=== PATIENT | male | born 1960 | race Caucasian/White ===

== ENCOUNTER 2017-04-10 08:02 | Inpatient (IN) | payer OTHER ==
[~2017-04-10] VITALS: Ht 185.4 cm; Wt 89.4 kg
[~2017-04-10 08:02] MED LIST: TEMA15CA PO
[2017-04-10] MEDS ORDERED: CELECOXIB 100 MG CAPSULE ONE (10:29)
[2017-04-10] MEDS ORDERED: ACETAMINOPHEN 325 MG TABLET ONE (10:29)
[2017-04-10] MEDS ORDERED: oxyCODONE HCL SR 10MG TAB.SR.12H PO ONE (10:29)
[2017-04-10] MEDS ORDERED: MIDAZOLAM HCL 2 MG/2ML VIAL ONE (12:12)
[2017-04-10] MEDS ORDERED: HYDROMORPHONE INJ 2 MG/ML DISP.SYRIN ONE (12:12)
[2017-04-10] MEDS ORDERED: TRANEXAMIC ACID 3,000 MG in SODIUM CHLORIDE IRRIG SOLUTION 70 ML IR ONE (12:30)
[2017-04-10] MEDS ORDERED: BACITRACIN 50000 UNITS/VIAL ONE (12:37)
[2017-04-10] MEDS ORDERED: BUPIVACAINE 0.5 % PF 150 MG/30 ML VIAL ONE (12:37)
[2017-04-10] MEDS ORDERED: KETOROLAC TROMETHAMINE INJ 30 MG/ML VIAL ONE (12:37)
--- NOTE | 2017-04-10 13:30 | NUR ---
RN OPENING NOTES PATIENT RETURNED TO UNIT IN STABLE CONDITION. VS WNL. AOX4. COMPLAINING OF SEVERE PAIN IN THE LEFT KNEE S/P LEFT TKA. DENIES CP OR SOB. RESPIRATIONS EVEN AND UNLABORED. NO ACUTE DISTRESS. IV ACCESS ON THE LEFT AC 18G PATENT AND INTACT. WILLL CARRY OUT ORDERS GIVEN FOR POST OP PER DR. TORRES. WILL CONTINUE TO MONITOR, ASSESS AND EDUCATE PATIENT THROUGHOUT SHIFT.
[2017-04-10 14:30] VITALS: BP 130/82
[2017-04-10] MEDS ORDERED: TYLENOL 650 MG TABLET PO PRN (15:00)
[2017-04-10] MEDS ORDERED: IV LR 1000 ML 1,000 ML IV PRN (15:00)
[2017-04-10] MEDS ORDERED: DULCOLAX 10 MG/SUPP.RECT RC PRN (15:00)
[2017-04-10] MEDS ORDERED: COLACE 250 MG CAPSULE PO PRN (15:00)
[2017-04-10] MEDS ORDERED: AMBIEN 5 MG TABLET PO PRN (15:00)
[2017-04-10] MEDS ORDERED: HYDROCODONE/APAP 5/325MG 1 EACH TABLET PO PRN (15:00)
[2017-04-10] MEDS ORDERED: SENOKOT 8.6 MG TABLET PO PRN (15:00)
[2017-04-10] MEDS: FENTANYL PF 100MCG/2ML AMPUL IV PRN ×3 (15:43→21:20)
[2017-04-10 16:00] VITALS: BP 130/82
--- NOTE | 2017-04-10 18:00 | NUR ---
RN NOTES PATIENT SEEN BY PT FOR EVAL. PATIENT ON CPM MACHINE TOLERATING AT 50 DEGREES. WILL CONTINUE TO MONITOR.
--- NOTE | 2017-04-10 19:00 | NUR ---
RN NOTES PATIENT CARE CONTINUED INTO NEXT SHIFT.
[2017-04-10 20:00] VITALS: BP 127/73
[2017-04-10] MEDS: ANCEF 1 GM/50 ML D5W IV SCH ×2 (21:18)
[2017-04-10] MEDS ORDERED: NICOTINE PATCH (21MG) 21 MG PATCH.TD24 TD ONE (22:48)
[2017-04-10] MEDS ORDERED: DRONABINOL (2.5 MG) 2.5 MG CAPSULE PO ONE (22:48)
--- NOTE | 2017-04-10 22:56 | NUR ---
RN NOTES PATIENT XANAX PLACED IN PHARMACY BIN. QUANTITY 20 AND VERIFIED WITH PATIENT.
[2017-04-10] MEDS ORDERED: PANTOPRAZOLE 40 MG TABLET.DR PO SCH (23:00)
[2017-04-10] MEDS ORDERED: ONDANSETRON HCL/PF 4 MG/2 ML VIAL IV PRN (23:00)
[2017-04-10] MEDS: DRONABINOL (2.5 MG) 2.5 MG CAPSULE PO SCH (23:00)
[2017-04-10] MEDS ORDERED: MAGNESIUM HYDROXIDE 30 ML UDC PO PRN (23:00)
[2017-04-10] MEDS: NICOTINE PATCH (21MG) 21 MG PATCH.TD24 TD SCH (23:00)
[2017-04-10] MEDS ORDERED: CLONIDINE HCL 0.1 MG TABLET PO PRN (23:00)
[2017-04-10] MEDS ORDERED: MAG HYDROX/AL HYDROX/SIMETH 30 ML UDC PO PRN (23:00)
[2017-04-10] MEDS ORDERED: diphenhydrAMINE HCL 25 MG CAPSULE PO PRN (23:00)
[2017-04-10] MEDS ORDERED: PROMETHAZINE HCL 50 MG/ML AMPUL IM PRN (23:00)
[2017-04-11] MEDS ORDERED: DRONABINOL (2.5 MG) 2.5 MG CAPSULE PO ONE (00:09)
[2017-04-11] MEDS: FENTANYL PF 100MCG/2ML AMPUL IV PRN ×2 (00:21→04:00)
--- NOTE | 2017-04-11 01:06 | NUR ---
RN NOTES MARINOL DOSE GIVEN. ONE TIME. NEXT DOES DUE IN THE AM. NICOTINE PATCH TO BE GIVEN TD DAILY IN THE AM. PATIENT OKAY WITH HAVING PATCH IN THE MORNING.
[2017-04-11] MEDS ORDERED: ACETAMINOPHEN 325 MG TABLET ONE (01:15)
--- NOTE | 2017-04-11 01:21 | NUR ---
RN NOTES NON ADMIN PROTONIX. CHANGED TO AM ACB PER SOCIAL SERVICE ASSISTANT [facility].
[2017-04-11] MEDS: ACETAMINOPHEN 325 MG TABLET PO SCH ×4 (01:34→17:41)
[2017-04-11] MEDS: ANCEF 1 GM/50 ML D5W IV SCH ×2 (05:50)
--- NOTE | 2017-04-11 07:30 | NUR ---
MS/RN Patient received Patient received from power and recovery shift engineer. Dressing to left knee dry and intact, CPM not in use at this time. Denies any pain. Call light within reach, bed in low setting, brakes locked. Will continue to monitor and ensure safety.
--- NOTE | 2017-04-11 07:55 | NUR ---
RN CLOSING NOTES PATIENT RESTING COMFORTABLY IN BED. AOX4. DENIES ANY CP OR SOB. MILD PAIN ON THE LEFT KNEE. RESPIRATION EVEN AND UNLABORED. NO ACUTE DISTRESS NOTED. IV ACCESS ON THE LEFT AC 18G PATENT AND INTACT. LR RUNNING AT 100 ML/HR. LEFT KNEE WRAPPED. CPM IN THE EVENING AT 50 DEGREES. PATIENT TOLERATED WELL, ALL NEEDS MET. ALL MEDS GIVEN THROUGHOUT THE PAST 24HR. BED LOCKED IN THE LOWEST POSITION. SIDE RAILS UP X2. WILL ENDORSE TO AM SHIFT FOR BROOKS.
[2017-04-11 08:00] VITALS: BP_SYST 141; BP_DIAS 71; BP_DIAS 76
[2017-04-11] MEDS: ASPIRIN 325 MG TABLET PO SCH (08:27)
[2017-04-11] MEDS: DOCUSATE SODIUM 100 MG CAPSULE PO SCH ×2 (08:27→17:40)
[2017-04-11] MEDS: PANTOPRAZOLE 40 MG TABLET.DR PO SCH (08:27)
[2017-04-11] MEDS: NICOTINE PATCH (21MG) 21 MG PATCH.TD24 TD SCH (08:27)
--- NOTE | 2017-04-11 09:00 | NUR ---
MS/RN Medications Morning medications administered as ordered.
--- NOTE | 2017-04-11 10:13 | NUR ---
MS/RN S/B PT Seen by PT - able to ambulate in hallway using FWW and standby assist only.
[2017-04-11 10:20] LABS: HEMOGLOBIN 14.4 g/dL (13.5-17.5)
--- NOTE | 2017-04-11 11:15 | NUR ---
MS/RN Seen by Dr Veloz Seen by Dr Veloz - to continue with current plan of care and recommendations from ortho.
[2017-04-11] MEDS: DRONABINOL (2.5 MG) 2.5 MG CAPSULE PO SCH ×2 (11:25→17:40)
--- NOTE | 2017-04-11 13:00 | NUR ---
MS/RN S/B Dr Purcell Seen by Dr Purcell - medications ordered -marinol 2.5mg q8 hours -tylenol 650mg q6 hours -colace 100mg BID
--- NOTE | 2017-04-11 14:13 | NUR ---
MS/RN CPM Patient using CPM machine, setting 0-55.
[2017-04-11] MEDS: oxyCODONE IR immediate release 5 MG CAPSULE PO PRN ×2 (15:26→19:49)
[2017-04-11 16:00] VITALS: BP 125/87
[2017-04-11 16:28] VITALS: BP 125/87
--- NOTE | 2017-04-11 16:30 | NUR ---
MS/RN S/B Amelia VIEYRA Seen by Amelia - dressing change tomorrow.
--- NOTE | 2017-04-11 18:53 | NUR ---
MS/RN End note Pain well controlled at this time, dressing to left knee dry and intact, first dressing change tomorrow. All needs attended, call light within reach. CPM to be used as per patient request later this evening. Will endorse to nightclub manager.
--- NOTE | 2017-04-11 19:20 | NUR ---
MS RN NOTES RECEIVED PT IN BED, AWAKE, A/O X 4. VERBALLY RESPONSIVE. NO DISTRESS, NO SOB NOTED. RESPIRATION IS EVEN AND UNLABORED. IV SITE ON RIGHT AC INTACT AND PATENT. SURGICAL SITE ON LEFT KNEE CLEAN, DRY AND INTACT. NO C/O PAIN OR DISCOMFORT AT THIS TIME. ALL NEEDS ATTENDED AND MET. CALL LIGHT WITHIN REACH . WILL CONT TO MONITOR.
[2017-04-11 20:00] VITALS: BP 130/72
[2017-04-11] MEDS: ALPRAZOLAM 0.25 MG TABLET PO PRN (20:13)
[2017-04-11] MEDS ORDERED: DRONABINOL (2.5 MG) 2.5 MG CAPSULE PO SCH (21:00)
[2017-04-12] MEDS: ACETAMINOPHEN 325 MG TABLET PO SCH ×5 (01:09→23:35)
[2017-04-12] MEDS: DRONABINOL (2.5 MG) 2.5 MG CAPSULE PO SCH ×3 (01:21→17:20)
[2017-04-12] MEDS ORDERED: oxyCODONE IR immediate release 5 MG CAPSULE ONE ×2 (02:33→06:06)
[2017-04-12] MEDS: oxyCODONE IR immediate release 5 MG CAPSULE PO PRN ×2 (02:59→23:34)
--- NOTE | 2017-04-12 04:00 | NUR ---
PT C/O FEELING PAIN AND TIGHTNESS ON THE LEFT LEG, ASSESSED LEFT KNEE, WITH INTACT , DRY AND CLEAN DRESSING. PT ABLE TO MOVE AND FEEL SENSATION ON HIS LEFT TOES, DORSALIS PEDIS PULSE PALPABLE, AND PINKISH IN COLOR. PT REQUESTED COLD COMPRESS FOR THE PAIN, COLD COMPRESS APPLIED TO AFFECTED EXTREMITY, WILL CONT TO MONITOR.
--- NOTE | 2017-04-12 04:30 | NUR ---
PT ASLEEP AT THIS TIME, AROUSES EASILY. NO C/O PAIN OR DISCOMFORT AT THIS TIME. CALL LIGHT WITHIN REACH. WILL CONT TO MONITOR.
--- NOTE | 2017-04-12 05:32 | NUR ---
PT ASLEEP AT THIS TIME, AROUSES EASILY. NO DISTRESS AT THIS TIME. CALL LIGHT WITHIN REACH . WILL CONT TO MONITOR.
--- NOTE | 2017-04-12 06:40 | NUR ---
MS RN NOTES PT IN BED, ASLEEP AT THIS TIME, AROUSES EASILY. A/O X 4. VERBALLY RESPONSIVE. NO DISTRESS, NO SOB NOTED. RESPIRATION IS EVEN AND UNLABORED. IV SITE ON RIGHT AC INTACT AND PATENT. SURGICAL SITE ON LEFT KNEE CLEAN, DRY AND INTACT. NO C/O PAIN OR DISCOMFORT AT THIS TIME. ALL NEEDS ATTENDED AND MET. CALL LIGHT WITHIN REACH . WILL ENDORSE TO NEXT SHIFT FOR BROOKS.
--- NOTE | 2017-04-12 07:33 | NUR ---
MS RN OPENING NOTES RECEIVED PT ASLEEP IN BED, AWAKENS EASILY. A/O X 4, ABLE TO MAKE NEEDS KNOWN, NO C/O PAIN OR DISCOMFORTS VOICED AT THIS TIME. ON ROOM AIR, RESPIRATION IS EVEN AND UNLABORED. IV ACCESS ON RIGHT AC INTACT AND PATENT. SURGICAL SITE ON LEFT KNEE CLEAN, DRY AND INTACT. BED IN LOW, LOCKED POSITION. CALL LIGHT WITHIN REACH . WILL CONTINUE TO MONITOR ACCORDINGLY.
[2017-04-12 08:00] VITALS: BP 123/72
[2017-04-12] MEDS: PANTOPRAZOLE 40 MG TABLET.DR PO SCH (08:28)
[2017-04-12] MEDS: ASPIRIN 325 MG TABLET PO SCH (09:07)
[2017-04-12] MEDS: DOCUSATE SODIUM 100 MG CAPSULE PO SCH ×2 (09:07→17:20)
[2017-04-12] MEDS: NICOTINE PATCH (21MG) 21 MG PATCH.TD24 TD SCH (09:07)
[2017-04-12] MEDS: FENTANYL PF 100MCG/2ML AMPUL IV PRN (10:40)
--- NOTE | 2017-04-12 11:40 | NUR ---
RN NOTES GEETHA HOFFMAN CAME AND CHANGED DRESSING OF PT'S LEFT KNEE. NO BLEEDING OR DRAINAGE NOTED TO OPERATIVE SITE. WILL CONTINUE TO MONITOR.
[2017-04-12 16:00] VITALS: BP 126/74
--- NOTE | 2017-04-12 19:02 | NUR ---
MS RN CLOSING NOTES PT RESTING IN BED AT SEMI-BURCIAGA'S POSITION. A/O X 4, ABLE TO MAKE NEEDS KNOWN. ALL NEEDS AND CARE ATTENDED WELL. ON ROOM AIR, NO SOB NOTED, RESPIRATION IS EVEN AND UNLABORED. IV ACCESS ON RIGHT AC INTACT AND PATENT. SURGICAL SITE ON LEFT KNEE WITH DRESSING CLEAN, DRY AND INTACT. KEPT BED IN LOW, LOCKED POSITION. CALL LIGHT AND BEDSIDE TABLE KEPT WITHIN REACH OF PT. ALL DUE MEDS GIVEN ORDERED AND TOLERATED. WILL ENDORSED TO CHIEF RADIATION THERAPIST NURSE FOR BROOKS..
[2017-04-12 20:00] VITALS: BP 120/71
[2017-04-12] MEDS: ALPRAZOLAM 0.25 MG TABLET PO PRN (21:25)
[2017-04-13] MEDS: DRONABINOL (2.5 MG) 2.5 MG CAPSULE PO SCH ×2 (02:00→06:23)
--- NOTE | 2017-04-13 03:23 | NUR ---
MS/RN NOTE: PATIENT REFUSED MARINOL SCHEDULED FOR 0200. PATIENT VERY SLEEPY.
[2017-04-13] MEDS: ACETAMINOPHEN 325 MG TABLET PO SCH ×2 (06:24→12:01)
--- NOTE | 2017-04-13 06:25 | NUR ---
MS/RN NOTE: MARINOL 2.5 MG TAB PO GIVEN EARLIER, DUE FOR 10 AM TODAY. WILL INFORM PHARMACY TO ADJUST THE TIME OF ADMINISTRATION.
--- NOTE | 2017-04-13 07:14 | NUR ---
RN OPEN NOTES RECEIVED REPORT FROM PSYCHOLOGY INTERN NURSE. PATIENT IS IN BED WITH HER EYES CLOSED. EASILY AWAKEN TO TOUCH AND CALLING HIS NAME. NO SIGNS AND SYMPTOMS OF DISTRESS. BED IN LOW POSITION, LOCKED AND TWO SIDE RAILS ARE UP. CALL LIGHT WITHIN REACH. WILL CONTINUE TO MONITOR AND ASSESS PATIENT THROUGHOUT MY SHIFT
[2017-04-13 08:00] VITALS: BP 117/73
[2017-04-13] MEDS: DOCUSATE SODIUM 100 MG CAPSULE PO SCH (08:06)
[2017-04-13] MEDS: NICOTINE PATCH (21MG) 21 MG PATCH.TD24 TD SCH (08:06)
[2017-04-13] MEDS: ASPIRIN 325 MG TABLET PO SCH (08:07)
[2017-04-13] MEDS: PANTOPRAZOLE 40 MG TABLET.DR PO SCH (08:08)
--- NOTE | 2017-04-13 13:56 | NUR ---
VEGETABLE SPECKER NOTES PATIENT DISCHARGE ORDER RECEIVED AND CARRIED OUT. PATIENT IS LEAVING IN A STABLE CONDITION. NO SIGNS AND SYMPTOMS OF DISTRESS OR PAIN. PATIENT IS GOING TO [facility]; REPORT GAVE TO RAY PAREKH. ROOM NUMBER WAS UNKNOWN AT TIME OF REPORT. DISCHARGE INSTRUCTIONS REPORTED TO SN[facility] RN AND PATIENT. BOTH VERBALIZED UNDERSTANDING. ALL PERSONAL BELONGING WITH PATIENT AT TIME OF DISCHARGE. PATIENT SIGNED BOTH BELONGING FORM AND INSTRUCTION FORM; FORMS PLACED IN THE CHART. PICTURES WERE TAKEN AND PLACED IN THE CHART. IV SITE REMOVED. ID BAND REMOVED. PATIENT PICKED UP BY AMBULANCE AND TWO OUTSIDE SALES ASSOCIATE. VITAL SIGNS ARE STABLE UPON DISCHARGE.
== END 2017-04-13 13:55 | DRG 470 ==
LOC: DS 08:02 → MED 15:25
PROC: 0SRD0J9 Replacement of Left Knee Joint with Synthetic Substitute, Cemented, Open Approach (ICD-10-PCS; principal; 2017-04-10 16:55)
DX: M17.12 Unilateral primary osteoarthritis, left knee (principal); F13.20 Sedative, hypnotic or anxiolytic dependence, uncomplicated; F19.11 Other psychoactive substance abuse, in remission; F32.9 Major depressive disorder, single episode, unspecified; F12.90 Cannabis use, unspecified, uncomplicated; Z72.0 Tobacco use; Z88.5 Allergy status to narcotic agent
CPT/HCPCS: 36415; 85027-TC; 87081-TC; 88305-TC; 88311-TC; 97110-TC; 97116-TC; 97530-TC; 97760-TC; A4217; A6402; J0690; J1100; J1170; J1885; J2250; J2405; J2704; J3010; J3490; J7060; J7120; L1830; Q0167; Z7610